=== PATIENT | male | born 1975 | race American Indian/Alaskan Native ===

== ENCOUNTER 2016-11-17 20:57 | Emergency (ER) | payer MEDICARE | END 2016-11-17 21:25 | disposition left against medical advice (07) | LOC: ED 20:57 | DX: M79.602 Pain in left arm (principal); Z53.21 Procedure and treatment not carried out due to patient leaving prior to being seen by health care provider ==

== ENCOUNTER 2016-11-19 14:53 | Emergency (ER) | payer MEDICARE ==
[2016-11-19 17:09] VITALS: BP 137/79
== END 2016-11-19 14:54 | disposition left against medical advice (07) ==
LOC: ED 14:53
DX: M79.602 Pain in left arm (principal); Z53.21 Procedure and treatment not carried out due to patient leaving prior to being seen by health care provider

== ENCOUNTER 2016-11-20 16:47 | Emergency (ER) | payer MEDICARE | END 2016-11-20 17:05 | disposition left against medical advice (07) | LOC: ED 16:47 | DX: Z00.8 Encounter for other general examination (principal); Z53.21 Procedure and treatment not carried out due to patient leaving prior to being seen by health care provider ==

== ENCOUNTER 2016-11-27 18:15 | Emergency (ER) | payer MEDICARE ==
[2016-11-27 18:39] VITALS: BP 131/75
== END 2016-11-27 18:45 | disposition left against medical advice (07) ==
LOC: ED 18:15
DX: M79.602 Pain in left arm (principal); Z53.21 Procedure and treatment not carried out due to patient leaving prior to being seen by health care provider

== ENCOUNTER 2016-12-01 18:27 | Emergency (ER) | payer MEDICARE ==
[2016-12-01 18:38] VITALS: BP 145/85
== END 2016-12-02 04:15 | disposition left against medical advice (07) ==
LOC: ED 18:27
DX: M25.512 Pain in left shoulder (principal); Z53.21 Procedure and treatment not carried out due to patient leaving prior to being seen by health care provider

== ENCOUNTER 2016-12-04 16:52 | Emergency (ER) | payer MEDICARE | END 2016-12-04 17:35 | disposition left against medical advice (07) | LOC: ED 16:52 | DX: M79.603 Pain in arm, unspecified (principal); Z53.21 Procedure and treatment not carried out due to patient leaving prior to being seen by health care provider ==

== ENCOUNTER 2016-12-10 19:36 | Emergency (ER) | payer MEDICARE | END 2016-12-10 20:55 | disposition left against medical advice (07) | LOC: ED 19:36 | DX: M79.602 Pain in left arm (principal); Z53.21 Procedure and treatment not carried out due to patient leaving prior to being seen by health care provider ==

== ENCOUNTER 2016-12-16 17:47 | Emergency (ER) | payer MEDICARE ==
[2016-12-16 19:31] VITALS: BP 142/102
[2016-12-16 20:24] LABS: Basophils % (Auto) 0.5 % (0.0-1.8); Eosinophils % (Auto) 0.2 % (0.0-4.3); Hematocrit 41.7 % (35.5-45.6); Hemoglobin 13.5 gm/dl (11.8-15.2); Mean Corpuscular HGB Conc 32 % (32-34); Mean Corpuscular Hemoglobin 30 pg (28-32); Mean Corpuscular Volume 92 fl (84-94); Platelet Count 187 K/mm3 (140-440); Red Blood Count 4.55 M/mm3 (3.65-5.03); Red Cell Distribution Width 15.4 % (13.2-15.2); White Blood Count 6.4 K/mm3 (4.5-11.0)
[2016-12-16 20:40] LABS: Anion Gap 17 mmol/L; Blood Urea Nitrogen 18 mg/dL (9-20); Calcium 8.9 mg/dL (8.4-10.2); Carbon Dioxide 26 mmol/L (22-30); Chloride 103.9 mmol/L (98-107); Glucose 82 mg/dL (75-100); Potassium 4.2 mmol/L (3.6-5.0); Sodium 143 mmol/L (137-145)
[2016-12-16 21:05] LABS: Valproate 40.1 ug/mL (50-100)
== END 2016-12-16 22:35 | disposition left against medical advice (07) ==
LOC: ED 17:47
DX: R56.9 Unspecified convulsions (principal); Z53.21 Procedure and treatment not carried out due to patient leaving prior to being seen by health care provider
CPT/HCPCS: 36415; 80048; 80164; 80185; 85025

== ENCOUNTER 2016-12-18 15:18 | Emergency (ER) | payer MEDICARE ==
--- NOTE | 2016-12-18 21:44 | ED Elopement Review ---
ED Pt Elopement review - Call Back decision Pt Call Back Decision: No action required
== END 2016-12-18 15:20 | disposition left against medical advice (07) ==
LOC: ED 15:18
DX: R53.83 Other fatigue (principal); Z53.21 Procedure and treatment not carried out due to patient leaving prior to being seen by health care provider

== ENCOUNTER 2016-12-20 18:21 | Emergency (ER) | payer MEDICARE ==
[2016-12-20 18:29] VITALS: BP 134/79
== END 2016-12-21 01:33 | disposition left against medical advice (07) ==
LOC: ED 18:21
DX: M79.601 Pain in right arm (principal); Z53.21 Procedure and treatment not carried out due to patient leaving prior to being seen by health care provider

== ENCOUNTER 2016-12-23 17:31 | Emergency (ER) | payer MEDICARE | END 2016-12-23 19:40 | disposition left against medical advice (07) | LOC: ED 17:31 | DX: M79.602 Pain in left arm (principal); Z53.21 Procedure and treatment not carried out due to patient leaving prior to being seen by health care provider ==

== ENCOUNTER 2016-12-25 15:22 | Emergency (ER) | payer MEDICARE ==
[2016-12-25 15:49] VITALS: BP 136/95
== END 2016-12-25 16:10 | disposition left against medical advice (07) ==
LOC: ED 15:22
DX: Z76.0 Encounter for issue of repeat prescription (principal); Z53.21 Procedure and treatment not carried out due to patient leaving prior to being seen by health care provider

== ENCOUNTER 2017-01-04 15:54 | Emergency (ER) | payer MEDICARE ==
[2017-01-04 17:04] VITALS: BP 129/72
--- NOTE | 2017-01-04 18:02 | Emergency Department Report ---
HPI - General Chief Complaint: Seizure Time Seen by Provider: 01/04/17 17:57 - HPI HPI: This is a 41-year-old Afro-Welsh male who presents to the emergency department from home with the claim that he had a non-witnessed seizure last night. He comes to the emergency department hoping to get his Depakote and Dilantin levels checked. He takes these medications for seizures and says he takes them compliantly. He has a primary care doctor, Dr. Rodrigues, but has not seen them regarding his symptoms. He has a past medical history of asthma, hypertension, seizures and has a psychiatric history of schizophrenia. He denies any current physical complaints. ED Past Medical Hx - Past Medical History Hx Hypertension: Yes Hx Seizures: Yes Hx Psychiatric Treatment: Yes (Schizophrenia) Hx Asthma: Yes Additional medical history: Psych - Surgical History Additional Surgical History: abd surgery - Social History Smoking Status: Unknown if ever smoked Substance Use Type: None - Medications Home Medications: Home Medications Medication Instructions Recorded Confirmed Last Taken Type Divalproex Dr [Depakote Dr] 500 mg PO BID #60 tablet 10/21/16 01/04/17 01/03/17 Rx Phenytoin [Dilantin] 300 mg PO QHS #30 capsule.er 10/21/16 01/04/17 01/03/17 Rx ED Review of Systems ROS: Stated complaint: SEIZURE Other details as noted in HPI Comment: All other systems reviewed and negative Constitutional: denies: chills, fever Eyes: denies: eye pain, eye discharge, vision change ENT: denies: ear pain, throat pain Respiratory: denies: cough, shortness of breath, wheezing Cardiovascular: denies: chest pain, palpitations Gastrointestinal: denies: abdominal pain, nausea, diarrhea Genitourinary: denies: urgency, dysuria Musculoskeletal: denies: back pain, joint swelling, arthralgia Skin: denies: rash, lesions Neurological: denies: headache, weakness, paresthesias Physical Exam - Physical Exam Vital Signs: Vital Signs 01/04/17 17:00 Temperature 98 F Pulse Rate 85 Respiratory 18 Rate Blood Pressure 129/72 O2 Sat by Pulse 100 Oximetry Physical Exam: GENERAL: The patient is well-developed well-nourished. HEENT: Normocephalic. Atraumatic. Extraocular motions are intact. Patient has moist mucous membranes. Pupils equal reactive to light bilaterally. NECK: Supple. Trachea is midline. CHEST/LUNGS: Clear to auscultation. There is no respiratory distress noted. HEART/CARDIOVASCULAR: Regular. There is no tachycardia. There is no gallop rub or murmur. ABDOMEN: Abdomen is soft, nontender. Patient has normal bowel sounds. There is no abdominal distention. SKIN: There is no rash. There is no edema. There is no diaphoresis. NEURO: The patient is awake, alert, and oriented. The patient is cooperative. The patient has no focal neurologic deficits. The patient has normal speech and gait. MUSCULOSKELETAL: There is no tenderness or deformity. There is no limitation range of motion. There is no evidence of acute injury. ED Course Vital Signs 01/04/17 17:00 Temperature 98 F Pulse Rate 85 Respiratory 18 Rate Blood Pressure 129/72 O2 Sat by Pulse 100 Oximetry ED Medical Decision Making - Lab Data Result diagrams: 01/04/17 19:02 01/04/17 19:02 - Medical Decision Making 41-year-old male presents with unwitnessed seizure last night and concern for subtherapeutic levels of his phenytoin and valproic acid. Patient's labs did show that the phenytoin level was low at 3.7. He was to get a loading dose of phenytoin. The rest labs are mostly unremarkable. However while the rest of his labs were coming back, the patient became agitated that he did not get something to eat fast enough and eloped from the hospital. Patient says that he does have a primary care doctor for follow-up and his medications to take at home. Critical Care Time: No Critical care attestation.: If time is entered above; I have spent that time in minutes in the direct care of this critically ill patient, excluding procedure time. ED Disposition Clinical Impression: Subtherapeutic phenytoin level Epilepsy Qualifiers: Epilepsy type: unspecified Intractability: not intractable Status epilepticus: without status epilepticus Qualified Code(s): G40.909 - Epilepsy, unspecified, not intractable, without status epilepticus Disposition: ELOPED Is pt being admited?: No Condition: Undetermined Referrals: PRIMARY CARE, [Primary Care Provider] - 3-5 Days
[2017-01-04] MEDS ORDERED: DILANTIN PO ONE (19:09)
[2017-01-04 19:14] LABS: Basophils % (Auto) 0.5 % (0.0-1.8); Eosinophils % (Auto) 0.5 % (0.0-4.3); Hematocrit 42.2 % (35.5-45.6); Hemoglobin 13.9 gm/dl (11.8-15.2); Mean Corpuscular HGB Conc 33 % (32-34); Mean Corpuscular Hemoglobin 30 pg (28-32); Mean Corpuscular Volume 91 fl (84-94); Platelet Count 215 K/mm3 (140-440); Red Blood Count 4.63 M/mm3 (3.65-5.03); Red Cell Distribution Width 15.2 % (13.2-15.2); White Blood Count 8.2 K/mm3 (4.5-11.0)
[2017-01-04 19:44] LABS: Anion Gap 19 mmol/L; BUN/Creatinine Ratio 18.88; Blood Urea Nitrogen 17 mg/dL (9-20); Carbon Dioxide 29 mmol/L (22-30); Glucose 102 mg/dL (75-100); Potassium 3.4 mmol/L (3.6-5.0); Sodium 134 mmol/L (137-145)
== END 2017-01-04 19:43 | disposition left against medical advice (07) ==
LOC: ED 15:54
DX: G40.909 Epilepsy, unspecified, not intractable, without status epilepticus (principal); R79.1 Abnormal coagulation profile; I10 Essential (primary) hypertension; F20.9 Schizophrenia, unspecified; J45.909 Unspecified asthma, uncomplicated
CPT/HCPCS: 36415; 80048; 80164; 80185; 85025; 99283

== ENCOUNTER 2017-01-08 21:53 | Emergency (ER) | payer MEDICARE ==
[2017-01-08 22:18] VITALS: BP 133/87
== END 2017-01-09 01:00 | disposition left against medical advice (07) ==
LOC: ED 21:53 → EEVIPCON 21:53 → ED 01-09 01:00
DX: Z00.8 Encounter for other general examination (principal); Z53.21 Procedure and treatment not carried out due to patient leaving prior to being seen by health care provider

== ENCOUNTER 2017-01-26 13:42 | Emergency (ER) | payer MEDICARE ==
[2017-01-26 14:00] VITALS: BP 153/104
--- NOTE | 2017-01-28 01:33 | ED Elopement Review ---
ED Pt Elopement review - Call Back decision Pt Call Back Decision: No action required
== END 2017-01-26 20:55 | disposition left against medical advice (07) ==
LOC: ED 13:42
DX: Z76.0 Encounter for issue of repeat prescription (principal); J45.909 Unspecified asthma, uncomplicated; I10 Essential (primary) hypertension; F20.9 Schizophrenia, unspecified; F17.200 Nicotine dependence, unspecified, uncomplicated; Z53.21 Procedure and treatment not carried out due to patient leaving prior to being seen by health care provider

== ENCOUNTER 2017-02-01 15:52 | Emergency (ER) | payer MEDICARE ==
[2017-02-01 16:45] VITALS: BP 131/86
== END 2017-02-01 21:34 | disposition left against medical advice (07) ==
LOC: ED 15:52
DX: M79.1 Myalgia (principal); Z53.21 Procedure and treatment not carried out due to patient leaving prior to being seen by health care provider

== ENCOUNTER 2017-02-20 22:09 | Emergency (ER) | payer MEDICARE ==
[2017-02-20 23:15] VITALS: BP 157/103
== END 2017-02-21 | disposition left against medical advice (07) ==
LOC: ED 22:09
DX: Z53.21 Procedure and treatment not carried out due to patient leaving prior to being seen by health care provider (principal)

== ENCOUNTER 2017-05-09 22:01 | Emergency (ER) | payer MEDICARE ==
[2017-05-09 23:00] LABS: Basophils % (Auto) 0.8 % (0.0-1.8); Eosinophils % (Auto) 0.5 % (0.0-4.3); Hematocrit 39.7 % (35.5-45.6); Hemoglobin 13.2 gm/dl (11.8-15.2); Mean Corpuscular HGB Conc 33 % (32-34); Mean Corpuscular Hemoglobin 30 pg (28-32); Mean Corpuscular Volume 89 fl (84-94); Platelet Count 190 K/mm3 (140-440); Red Blood Count 4.47 M/mm3 (3.65-5.03); Red Cell Distribution Width 15.1 % (13.2-15.2); White Blood Count 9.3 K/mm3 (4.5-11.0)
[2017-05-09 23:42] LABS: Urine Drugs of Abuse Note Disclamer
[2017-05-09 23:42] LABS: Anion Gap 9 mmol/L; Blood Urea Nitrogen 14 mg/dL (9-20); Calcium 9.4 mg/dL (8.4-10.2); Carbon Dioxide 34 mmol/L (22-30); Chloride 102.8 mmol/L (98-107); Glucose 73 mg/dL (75-100); Potassium 3.7 mmol/L (3.6-5.0); Sodium 142 mmol/L (137-145)
[2017-05-10 00:08] LABS: Bilirubin,Urine NEG (Negative); Blood,Urine NEG (Negative); Ketones,Urine NEG (Negative); Leukocyte Esterase,Urine NEG (Negative); Mucus,Urine 1+ /HPF; Nitrite,Urine NEG (Negative); Urobilinogen,Urine < 2.0 mg/dL (<2.0)
--- NOTE | 2017-05-10 01:43 | Emergency Department Report ---
HPI - General Chief Complaint: Psych - HPI HPI: This is a 41-year-old Afro-[place] male who is well-known to this Hospital who presents to the emergency department with complaint of a few days of auditory hallucinations that are causing him to have homicidal ideations. He has a history of schizophrenia and says that he was recently switched from his Haldol to Risperdal and that it does not appear to be working for him. He has a past medical history of asthma, hypertension and seizures. Patient is on both Depakote and Dilantin. Secondarily, the patient complains of some left ankle pain and says that recently he thinks that he sprained it. However the patient is seen ambulatory in the emergency department and does not appear unstable or as if the ankle is bothering him. He is also not able to give much information about when he may have sprained it. He also has a small laceration or cut around the outside of the right elbow. There is no bleeding or signs of infection at this time. He says that he is up-to-date with his vaccinations. He denies any suicidal ideations or any visual hallucinations at this time. ED Past Medical Hx - Past Medical History Hx Hypertension: Yes Hx Seizures: Yes Hx Psychiatric Treatment: Yes (Schizophrenia) Hx Asthma: Yes Additional medical history: Psych - Surgical History Additional Surgical History: abd surgery - Social History Smoking Status: Current Every Day Smoker Substance Use Type: None - Medications Home Medications: Home Medications Medication Instructions Recorded Confirmed Last Taken Type Divalproex Dr [Depakote Dr] 500 mg PO BID #60 tablet 10/21/16 01/04/17 01/03/17 Rx Phenytoin [Dilantin] 300 mg PO QHS #30 capsule.er 10/21/16 01/04/17 01/03/17 Rx ED Review of Systems ROS: Stated complaint: MH EVAL/AUDITORY HALLUCINATIONS Other details as noted in HPI Comment: All other systems reviewed and negative Constitutional: denies: chills, fever Eyes: denies: eye pain, eye discharge, vision change ENT: denies: ear pain, throat pain Respiratory: denies: cough, shortness of breath, wheezing Cardiovascular: denies: chest pain, palpitations Gastrointestinal: denies: abdominal pain, nausea, diarrhea Genitourinary: denies: urgency, dysuria Musculoskeletal: arthralgia. denies: joint swelling Skin: denies: rash, lesions Neurological: denies: headache, weakness, paresthesias Psychiatric: auditory hallucinations, homicidal thoughts. denies: visual hallucinations, suicidal thoughts Physical Exam - Physical Exam Vital Signs: Vital Signs 05/09/17 05/10/17 22:08 01:36 Temperature 99.1 F 98.6 F Pulse Rate 110 H 99 H Respiratory 16 20 Rate Blood Pressure 138/91 Blood Pressure 138/91 134/96 [Left] O2 Sat by Pulse 100 100 Oximetry Physical Exam: GENERAL: The patient is well-developed well-nourished. HEENT: Normocephalic. Atraumatic. Extraocular motions are intact. Patient has moist mucous membranes. Pupils equal reactive to light bilaterally. NECK: Supple. Trachea is midline. CHEST/LUNGS: Clear to auscultation. There is no respiratory distress noted. HEART/CARDIOVASCULAR: Regular. There is no tachycardia. There is no gallop rub or murmur. ABDOMEN: Abdomen is soft, nontender. Patient has normal bowel sounds. There is no abdominal distention. SKIN: Skin warm and dry. There is a 0.5 cm laceration and/or skin avulsion to the outside of the right elbow. No surrounding erythema. No current bleeding. NEURO: The patient is awake, alert, and oriented. The patient is cooperative. The patient has no focal neurologic deficits. The patient has normal speech and gait. MUSCULOSKELETAL: There is mild tenderness to palpation to the circumferential left ankle but there is no obvious deformity.. There is no limitation range of motion. Muscle strength 5 out of 5 for upper and lower extremities bilaterally. ED Course Vital Signs 05/09/17 05/10/17 22:08 01:36 Temperature 99.1 F 98.6 F Pulse Rate 110 H 99 H Respiratory 16 20 Rate Blood Pressure 138/91 Blood Pressure 138/91 134/96 [Left] O2 Sat by Pulse 100 100 Oximetry ED Medical Decision Making - Lab Data Result diagrams: 05/09/17 22:32 05/09/17 22:32 - Medical Decision Making 41-year-old male presents emergency Department with complaint of auditory hallucinations causing homicidal ideations or wanting to hurt other people. He has a history of schizophrenia. Vital signs stable throughout his ED course. His labs are unremarkable did not show any etiology of the patient's symptoms. He has been made a 1013 secondary to the homicidal ideations. He is having a x- ray of the ankle done secondary to his complaint of possibly spraining it or some recent trauma. However I saw the patient and the door in the emergency department and did not appear as if it was bothering him or causing him to have any limitations. Vital signs been stable that his ED course. Patient appears medically cleared for psychiatric placement and the crisis therapist/behavioral team has been contacted to assist. - Differential Diagnosis schizophrenia, schizoaffective, depression, bipolar, substance abuse Critical Care Time: No Critical care attestation.: If time is entered above; I have spent that time in minutes in the direct care of this critically ill patient, excluding procedure time. ED Disposition Clinical Impression: Auditory hallucinations, Homicidal ideations Schizophrenia Qualifiers: Schizophrenia type: unspecified Qualified Code(s): F20.9 - Schizophrenia, unspecified Disposition: DC/TX-[id number] PSY HOSP/PSY UNIT Is pt being admited?: No Condition: Stable Referrals: ABHIJEET CONN MD [Primary Care Provider] - 3-5 Days Time of Disposition: 02:03
[2017-05-10 02:10] LABS: Valproate < 2.8 ug/mL (50-100)
--- NOTE | 2017-05-10 07:25 | XRay Report ---
Left ankle 3 views: History: Ankle pain. Findings: Bony density is identified at anterior superior aspect of talus probably related to old injury. Mild arthritic changes at the talotibial joint and the subtalar joint. Impression: Findings as detailed above.
[2017-05-10 15:16] VITALS: BP 136/88
--- NOTE | 2017-05-10 16:33 | Consultation ---
History of Present Illness - Reason for Consult Consult date: 05/10/17 Reason for consult: Mental Health Evaluation Requesting physician: AUGUSTINE PRINCE - Chief Complaint Chief complaint: "I need my money right" - History of Present Psychiatric Illness This is a 41-year-old Afro-[place]ym[place] male who is well-known to this Hospital who presents to the emergency department with complaint AVH's and SI's. Today patient is calm during assessment. He stated that his main issue is "getting his money right." He stated that he was homicidal a couple days ago, because people just don't do him right. I asked him to explain to me more about people not doing him right, he stated, "why" and refused. He stated being equal to "God " and no one would understand. Once he finished talking about God, he decided to talk about not having enough money to get his life in order. He admit to not sleeping for days prior to his admission. Also, he stated that he would like some help with finding a place to stay. He would not confirm or deny if he is homeless at this time. He stated that his HI's "come and go." He denies SI's, AVH's, and depression. He stated that he smoke marijuana often, but denies excessive alcohol consumption. Patient stated that he take risperdal, but have not taking the medication in a month. Medications and Allergies Allergies Allergy/AdvReac Type Severity Reaction Status Date / Time No Known Allergies Allergy Verified 12/08/16 13:36 Home Medications Medication Instructions Recorded Confirmed Last Taken Type Divalproex [Casey Ayala] 500 mg PO BID #60 tablet 10/21/16 01/04/17 01/03/17 Rx Phenytoin [Dilantin] 300 mg PO QHS #30 capsule.er 10/21/16 01/04/17 01/03/17 Rx Past psychiatric history - Past Medical History Past Medical History: No medical history Past Surgical History: No surgical history - past Psychiatric treatment and history Psych: Bipolar psychiatric treatment history: Multiple inpatient admissions. Denies a fam psy hx. - Social History Social history: Lives alone (Possibly homeless), other Mental Status Exam - Vital signs Last Vital Signs Temp 98.0 F 05/10/17 10:00 Pulse 75 05/10/17 10:00 Resp 16 05/10/17 10:00 BP 136/88 05/10/17 10:00 Pulse Ox 100 05/10/17 10:00 - Exam Narrative exam: ROS: (-) possibly manic MSE: Appearance: calm Behavior: regular eye contact Speech: low rate and tone Mood: "okay" Affect: labile Thought Process: circumstantial Thought Content: denies SI's and AVH's Motor Activity: ambulatory Cognition: A/Ox 3 Insight: limited Judgment: limited Results Result Diagrams: 05/09/17 22:32 05/09/17 22:32 Abnormal lab results 05/09/17 05/09/17 05/10/17 Range/Units 22:32 22:32 01:52 [place] % (Auto) 8.4 H (0.0-7.3) % Carbon Dioxide 34 H (22-30) mmol/L Glucose 73 L (75-100) mg/dL Phenytoin 1.9 L (10.0-20.0) mg/L Valproic Acid < 2.8 L (50-100) ug/mL All other labs normal. Assessment and Plan Assessment and plan: Impression: Possibly manic, Historical Dx: Bipolar DO. Today patient is calm during assessment. He denies SI's and AVH's. Possibly homeless. Patient positive for marijuana. DDx: Schizoaffective DO. Recommendation/Plan: Continue 1013 with placement to inpatient psy services. Start Risperdal 0.5 mg PO HS for mood. Discussed possible metabolic side effects of risperdal with patient. Real Estate Agent/Broker involvement, patient may need placement if discharged from [facility].
[2017-05-10] MEDS ORDERED: RisperDAL PO SCH (22:00)
== END 2017-05-10 18:33 ==
LOC: ED 22:01 → EEVIPCON 22:01 → ED 05-10 18:33
DX: F20.9 Schizophrenia, unspecified (principal); F44.0 Dissociative amnesia; R45.850 Homicidal ideations; I10 Essential (primary) hypertension; J45.909 Unspecified asthma, uncomplicated; F17.200 Nicotine dependence, unspecified, uncomplicated
CPT/HCPCS: 36415; 73610; 80048; 80164; 80185; 80307; 81001; 85025; 99285; G0480; 80320

== ENCOUNTER 2017-05-20 20:30 | Emergency (ER) | payer MEDICARE | END 2017-05-20 21:38 | disposition left against medical advice (07) | LOC: ED 20:30 | DX: Z00.8 Encounter for other general examination (principal); Z53.21 Procedure and treatment not carried out due to patient leaving prior to being seen by health care provider ==

== ENCOUNTER 2017-05-22 09:27 | Emergency (ER) | payer MEDICARE ==
[2017-05-22 10:05] VITALS: BP 159/109
== END 2017-05-22 12:49 | disposition left against medical advice (07) ==
LOC: ED 09:27
DX: Z53.21 Procedure and treatment not carried out due to patient leaving prior to being seen by health care provider (principal)

== ENCOUNTER 2017-07-04 16:56 | Emergency (ER) | payer MEDICARE | END 2017-07-04 16:57 | disposition left against medical advice (07) | LOC: ED 16:56 | DX: Z76.0 Encounter for issue of repeat prescription (principal); Z00.8 Encounter for other general examination; Z53.21 Procedure and treatment not carried out due to patient leaving prior to being seen by health care provider ==